=== PATIENT | female | born 1950 | race Caucasian/White ===

== ENCOUNTER 2019-04-17 10:45 | Day surgery (SDC) | payer MEDICARE ==
[~2019-04-17] VITALS: Ht 160 cm; Wt 120.5 kg
[2019-04-17] MEDS ORDERED: SODIUM CHLORIDE 0.9% 1,000 ML IV SCH ×2 (11:25→13:45)
[2019-04-17 11:29] VITALS: BP 140/56
[2019-04-17] MEDS ORDERED: MAGNESIUM PO (11:40)
[2019-04-17] MEDS ORDERED: EZET10TA70 PO (11:40)
[2019-04-17] MEDS ORDERED: ASPI81TA45 PO (11:40)
[2019-04-17] MEDS ORDERED: LOSA100T14 PO (11:40)
[2019-04-17] MEDS ORDERED: VITAMIN D PO (11:40)
[2019-04-17] MEDS ORDERED: ALBU8.5H8 INH (11:40)
[2019-04-17] MEDS ORDERED: ATEN50TA41 PO (11:40)
[2019-04-17] MEDS ORDERED: INSU100I13 SC (11:40)
[2019-04-17] MEDS ORDERED: SPIR25TA5 PO (11:40)
[2019-04-17] MEDS ORDERED: OMEGA 3 PO (11:40)
[2019-04-17] MEDS ORDERED: ATOR80TA PO (11:40)
[2019-04-17] MEDS ORDERED: OMEP-110 PO (11:40)
[2019-04-17] MEDS ORDERED: GABA300C10 PO (11:40)
[2019-04-17] MEDS ORDERED: INSU100V11 SC (11:40)
[2019-04-17] MEDS ORDERED: FLUT9.9S INH (11:40)
[2019-04-17] MEDS ORDERED: TIZA4CAP2 PO (11:40)
[2019-04-17] MEDS ORDERED: FENTANYL PF 100 MCG/2ML ONE (12:19)
[2019-04-17] MEDS ORDERED: MIDAZOLAM 1 MG/ML, 5ML ONE (12:19)
[2019-04-17] MEDS ORDERED: VERAPAMIL 2.5 MG/ML, 2ML ONE (12:20)
[2019-04-17] MEDS ORDERED: LIDOCAINE-MPF 1%, 5ML ONE (12:20)
[2019-04-17] MEDS ORDERED: HEPARIN 1,000 UNITS/ML, 10ML ONE (12:20)
== END 2019-04-17 15:08 | disposition home or self-care (01) ==
LOC: CACL 10:45
PROVIDERS: ATTEND Internal Medicine Cardiovascular Disease
DX: R94.39 Abnormal result of other cardiovascular function study (principal); I25.10 Atherosclerotic heart disease of native coronary artery without angina pectoris; I25.83 Coronary atherosclerosis due to lipid rich plaque; E11.9 Type 2 diabetes mellitus without complications; I10 Essential (primary) hypertension; I73.9 Peripheral vascular disease, unspecified; E78.00 Pure hypercholesterolemia, unspecified; E66.01 Morbid (severe) obesity due to excess calories; Z68.42 Body mass index [BMI] 45.0-49.9, adult; Z79.4 Long term (current) use of insulin; Z79.82 Long term (current) use of aspirin; Z79.899 Other long term (current) drug therapy; Z88.8 Allergy status to other drugs, medicaments and biological substances; Z82.49 Family history of ischemic heart disease and other diseases of the circulatory system
CPT/HCPCS: 93458; 93567; 99156; 99157; C1769; C1894; J1644; J2250; J3010; Q9967

== ENCOUNTER 2019-06-21 13:57 | Outpatient (CLI) | payer MEDICARE ==
[~2019-06-21 13:57] MED LIST: ALBU8.5H8 INH; ASPI81TA45 PO; ATEN50TA41 PO; ATOR80TA PO; EZET10TA70 PO; FLUT9.9S INH; GABA300C10 PO; INSU100I13 SC; INSU100V11 SC; LOSA100T14 PO; MAGNESIUM PO; OMEGA 3 PO; OMEP-110 PO; SPIR25TA5 PO; TIZA4CAP2 PO; VITAMIN D PO
[2019-06-21 15:35] LABS: MICROSCOPIC NOT IND
[2019-06-21 15:36] LABS: BASOPHILS # (AUTO) 0.03 x10^3/uL (0-0.1); BASOPHILS % (AUTO) 1 % (0-1); CULTURE INDICATED? NO; EOSINOPHILS % (AUTO) 3 % (1-7); LYMPHOCYTES # (AUTO) 1.89 x10^3/uL (1-3.4); LYMPHOCYTES % (AUTO) 28 % (22-44); MD NO; MEAN CORPUSCULAR HEMOGLOBIN 29.7 pg (27.0-34.8); MEAN CORPUSCULAR HGB CONC 32.8 g/dL (32.4-35.8); MEAN CORPUSCULAR VOLUME 90.8 fL (80-100); MONOCYTES # (AUTO) 0.38 x10^3/uL (0.2-0.8); MONOCYTES % (AUTO) 6 % (2-9); NEUTROPHILS # (AUTO) 4.38 x10^3/uL (1.8-6.8); NEUTROPHILS % (AUTO) 64 % (42-75); PLATELET COUNT 184 x10^3/uL (130-400); RED BLOOD COUNT 4.58 x10^6/uL (3.82-5.3); RED CELL DISTRIBUTION WIDTH 14.5 % (9.6-15.2)
[2019-06-21 15:46] LABS: ALANINE AMINOTRANSFERASE 25 U/L (12-78); ALBUMIN 3.4 g/dL (3.4-5.0); ANION GAP 6 mmol/L (5-15); CALCIUM 8.7 mg/dL (8.5-10.1); CHLORIDE 109 mmol/L (98-107)
[2019-06-21 15:54] LABS: ALKALINE PHOSPHATASE 100 U/L (45-117); BILIRUBIN,TOTAL 0.5 mg/dL (0.2-1.0); CHOL/HDL RATIO 2.6; CHOLESTEROL, TOTAL 115 mg/dL (140-239); CREATININE 1.14 mg/dL (0.55-1.02); FREE T4 (FREE THYROXINE) 1.38 ng/dL (0.76-1.46); HDL CHOL % 39 % (28-40); HDL CHOLESTEROL (DIRECT) 45 mg/dL (40-60); LDL CHOLESTEROL,CALCULATED 50 mg/dL (54-169); LDL/HDL RATIO 1.1 (0.5-3.0); TOTAL PROTEIN 7.4 g/dL (6.4-8.2); TRIGLYCERIDES 100 mg/dL (50-200); VLDL CHOLESTEROL 20 mg/dL (0-25)
== END 2019-06-21 23:59 | disposition home or self-care (01) ==
LOC: CFH 13:57
PROVIDERS: ATTEND Internal Medicine Geriatric Medicine
DX: E11.9 Type 2 diabetes mellitus without complications (principal); N28.9 Disorder of kidney and ureter, unspecified; E55.9 Vitamin D deficiency, unspecified; E78.5 Hyperlipidemia, unspecified; R53.83 Other fatigue
CPT/HCPCS: 36415; 80053; 80061; 81003; 82306; 83036; 84439; 84443; 85025

== ENCOUNTER 2019-08-26 07:38 | Day surgery (SDC) | payer MEDICARE ==
[~2019-08-26] VITALS: Ht 160 cm; Wt 120.0 kg
[~2019-08-26 07:38] MED LIST changes: +BUPIVACAINE/PF 0.25% ONE; +CHOL3000 PO; +EPINEPHRINE 1 MG/ML, 1ML ONE; +NEOMY/POLYMYXIN B GU IRR. 1 ML ONE; +VITA100C8 PO
[2019-08-26] MEDS ORDERED: LACTATED RINGERS 1,000 ML IV SCH (08:29)
[2019-08-26] MEDS ORDERED: ACETAMINOPHEN 500 MG TABLET PO ONE (08:30)
[2019-08-26] MEDS ORDERED: GABAPENTIN 300 MG CAPSULE PO ONE (08:30)
[2019-08-26] MEDS ORDERED: SCOPOLAMINE 1MG PATCH TD SCH (08:30)
[2019-08-26] MEDS ORDERED: LIDOCAINE-MPF 1%, 2ML INFIL ONE (08:30)
[2019-08-26 08:53] VITALS: BP 145/91
[2019-08-26] MEDS ORDERED: FENTANYL PF 250 MCG/5ML ONE (09:54)
[2019-08-26] MEDS ORDERED: MIDAZOLAM 1 MG/ML, 2ML ONE (09:54)
[2019-08-26] MEDS ORDERED: LIDOCAINE GEL 2%, 5ML ONE (09:55)
[2019-08-26] MEDS ORDERED: OXYcodone 5 MG/5 ML ORAL.SOL UDC PO PRN (11:00)
[2019-08-26] MEDS ORDERED: MEPERIDINE/PF 25MG/ML,1ML IVPush PRN (11:00)
[2019-08-26] MEDS ORDERED: PROMETHAZINE 25 MG/ML, 1ML IV PRN (11:00)
[2019-08-26] MEDS ORDERED: HYDROmorphone 2 MG/ML, 1ML IVPush PRN (11:00)
[2019-08-26] MEDS ORDERED: FENTANYL PF 100 MCG/2ML IV PRN (11:00)
[2019-08-26] MEDS ORDERED: LABETALOL 5MG/ML, 20ML IV PRN (11:00)
[2019-08-26] MEDS ORDERED: HALOPERIDOL 5 MG/ML IV PRN (11:00)
[2019-08-26] MEDS ORDERED: hydrALAzine 20 MG/ML, 1ML IV PRN (11:00)
[2019-08-26] MEDS ORDERED: PROPOFOL 10 MG/ML, 20ML ONE (11:02)
[2019-08-26] MEDS ORDERED: CEFAZOLIN 1,000 MG ONE (11:02)
[2019-08-26] MEDS ORDERED: ONDANSETRON 2MG/ML, 2ML ONE (11:02)
[2019-08-26] MEDS ORDERED: DEXAMETHASONE 4 MG/ML, 1ML ONE (11:02)
[2019-08-26] MEDS ORDERED: GLYCOPYRROLATE 0.2MG/1ML, 5ML ONE (11:02)
[2019-08-26] MEDS ORDERED: NEOSTIGMINE 1 MG/ML, 10ML ONE (11:02)
[2019-08-26] MEDS ORDERED: ROCURONIUM 10MG/ML,5ML ONE (11:02)
[2019-08-26] MEDS ORDERED: SUCCINYLCHOLINE 20 MG/ML, 10ML ONE (11:02)
[2019-08-26] MEDS ORDERED: MEPERIDINE/PF 25MG/ML,1ML ONE (13:34)
[2019-08-26] MEDS ORDERED: OXYcodone 5 MG/5 ML ORAL.SOL UDC ONE (13:34)
== END 2019-08-26 17:35 | disposition home or self-care (01) ==
LOC: OUT 07:38
PROVIDERS: ATTEND Obstetrics & Gynecology Female Pelvic Medicine and Reconstructive Surgery
DX: N95.0 Postmenopausal bleeding (principal); N81.89 Other female genital prolapse; D25.9 Leiomyoma of uterus, unspecified; N81.11 Cystocele, midline; N81.6 Rectocele; N81.5 Vaginal enterocele; N83.8 Other noninflammatory disorders of ovary, fallopian tube and broad ligament; N39.46 Mixed incontinence; E66.01 Morbid (severe) obesity due to excess calories; E11.9 Type 2 diabetes mellitus without complications; I10 Essential (primary) hypertension; M19.90 Unspecified osteoarthritis, unspecified site; F41.9 Anxiety disorder, unspecified; Z79.899 Other long term (current) drug therapy; Z88.8 Allergy status to other drugs, medicaments and biological substances; Z98.890 Other specified postprocedural states
CPT/HCPCS: 57265; 57288; 58552; 82962; 88307; 93005; C1771; J0171; J0330; J0690; J1100; J2175; J2250; J2405; J2704; J2710; J3010; J3490; J7120